=== PATIENT | male | born 1965 | race Caucasian/White ===

== ENCOUNTER 2019-03-20 16:18 | Observation (INO) | payer OTHER ==
[~2019-03-20] VITALS: Ht 177.8 cm; Wt 69.4 kg
--- NOTE | 2019-03-20 16:20 | NUR ---
TO ROOM VIA EMS STRETCHER
--- NOTE | 2019-03-20 17:10 | NUR ---
PT ARRIVED BY EMS WITH THE COMPLAINT THAT HE HAD ALTERED MENTAL STATUS SIDE OF ROAD. PIANO ASSEMBLER DISCRIBED THAT PT WAS ALERT TO PERSON AND PLACE BUT NOT TIME. PT WAS ON HIS WAY HOME. HE WAS SLIGHTLY TACHYCARDIC IN AMBULANCE AND HAD A BG OF 106. NSR UPON TALKING TO PT HE IS ALERT IN PERSON PLACE AND TIME. PT STATES PASSING OUT ON HIS WAY HOME FROM THE STORE. PERRMICHELLE. PT VITAL SIGNS ARE WITHIN NORMAL LIMITS. WILL CONTINUE TO MONITOR.
[2019-03-20 17:43] LABS: HEMATOCRIT 44.6 % (39.0-50.0); HEMOGLOBIN 15.2 g/dl (14.0-18.0); IMMATURE GRANULOCYTES 0.6 % (0.0-5.0); MEAN CORPUSCULAR HGB 31.3 pG CALC (26.0-32.0); MEAN CORPUSCULAR HGB CONC 34.1 g/L CALC (32.0-36.0); NEUT# 1.96 thou/uL (1.82-7.42); RED BLOOD COUNT 4.85 mill/uL (4.70-6.10)
[2019-03-20 17:58] LABS: ALBUMIN 5.2 g/dL (3.2-5.0); ALKALINE PHOSPHATASE 92 u/l (38-126); ANION GAP 25 (6-22 (CALC)); BILIRUBIN, TOTAL 0.8 mg/dL (0.0-1.4); BUN 7 mg/dL (9-20); BUN/CREATININE RATIO 10 (12-20 (CALC)); CARBON DIOXIDE 24 mmol/l (22-30); CHLORIDE 97 mmol/l (95-108); CREATININE 0.7 mg/dL (0.7-1.3); GFR > 60 ML/MIN (>=60 (CALC)); GFR FOR AFR.AMER. > 60 ML/MIN (>=60 (CALC)); POTASSIUM 4.2 mmol/l (3.5-5.1); SGOT/AST 141 u/l (17-59); SODIUM 142 mmol/l (137-146); TOTAL PROTEIN 8.7 g/dL (6.3-8.2)
--- NOTE | 2019-03-20 18:02 | NUR ---
ORDERED FOR ORTHOSTATICS. REQUEST FULFILLED
[2019-03-20 18:10] LABS: MYOGLOBIN 322 ng/mL (0 - 121)
[2019-03-20 18:41] LABS: URINE BILIRUBIN - DIPSTICK NEGATIVE (NEGATIVE); URINE BLOOD DIPSTICK SMALL (NEGATIVE); URINE COLOR YELLOW; URINE GLUCOSE - DIPSTICK NEGATIVE (NEGATIVE); URINE KETONE 40 mg/dL (NEGATIVE); URINE LEUK ESTERASE NEGATIVE (NEGATIVE); URINE NITRITE - DIPSTICK NEGATIVE (Negative); URINE PH 5.5 (4.5-8.0); URINE PROTEIN - DIPSTICK TRACE mg/dL (NEG-TRACE); URINE UROBILINOGEN - DIPSTICK 0.2 E.U./dL (0.2)
[2019-03-20 18:43] LABS: BARBITURATES NEGATIVE (NEGATIVE); COCAINE NEGATIVE (NEGATIVE); METHADONE NEGATIVE (NEGATIVE); OXCYCODONE NEGATIVE (NEGATIVE); TETRAHYDROCANNABIONOL NEGATIVE (NEGATIVE); TRICYLIC ANTIDEPRESSANTS NEGATIVE (NEGATIVE)
[2019-03-20 18:59] LABS: URINE SQUAMOUS EPITHELIAL CELL FEW EPI/hpf (0-FEW)
--- NOTE | 2019-03-20 19:29 | NUR ---
PT NOTIFIED OF FINDINGS OF ALCOHOL LEVEL OF 300. BECAUSE OF THAT LEVEL IT WAS EXPLAINED THAT HE HAS TO STAY IN HOSPITAL TIL LEVELS SUBSIDED. UNLESS HE HAD FAMILY TO PICK HIM UP. PT STATED THAT HE DID NOT SO HE WILL HAVE TO BE OBSERVED. PT VERBALIZED UNDERSTANDING.
--- NOTE | 2019-03-20 20:02 | NUR ---
PT IS LAYING IN BED WATCHING TV. CALL LIGHT WITHIN REACH, DENIED ANY NEEDS
--- NOTE | 2019-03-20 21:27 | NUR ---
PT REQUEST FOR ADDITIONAL PO FLUIDS. BESIDES THAT PT DENIED ANY OTHER NEEDS. HE IS SITTING UP IN STRETCHER WATCHING TV AND CALL LIGHT WITHIN REACH
--- NOTE | 2019-03-20 21:52 | NUR ---
REPORT ROSA JACOB RN
--- NOTE | 2019-03-20 21:55 | NUR ---
ASSUMED CARE. HAT/SHIRT/SHOES TO DESK. PT IS ALERT/ORIENTED. PWD. IVF INFUSING. VSS.
--- NOTE | 2019-03-21 00:15 | NUR ---
PT WATCHING TV. VSS. UP TO BS TO VOID IN URINAL.
--- NOTE | 2019-03-21 00:44 | NUR ---
PT RUBEN. ALERT ORIENTED TO PERSON/PLACE. TIME OF DAY...NOT. EKG DONE. LAB HERE FOR REPEAT BAL. IV FLUIDS UP.
[2019-03-21 01:26] LABS: MAGNESIUM 1.7 mg/dL (1.6-2.3)
--- NOTE | 2019-03-21 01:30 | NUR ---
U/O 400
--- NOTE | 2019-03-21 02:09 | NUR ---
DR TO BEDSIDE TO RE-EVAL.
--- NOTE | 2019-03-21 02:26 | NUR ---
PT CALMER/CONVERSING. VOIDED 400 CC IN URINAL. CIWA ORDERS FAXED TO [facility].
--- NOTE | 2019-03-21 03:23 | NUR ---
REPORT TO JUDY/MED SURG.
--- NOTE | 2019-03-21 03:28 | NUR ---
PT TO FLOOR VIA W/C WITH BELONGINGS IN THE BAG. PT AMBULATORY TO BED. RUBEN. SOLE LAYER AT BEDSIDE.
[2019-03-21 03:30] VITALS: BP 150/92
--- NOTE | 2019-03-21 03:30 | NUR ---
RECEIVED REPORT FROM NURSE JACOB, PATIENT TRANSPORTED VIA WHEELCHAIR TRANSFERRED TO BED, ORINETED TO ROOM AND CALL LIGHT SYSTEM.
--- NOTE | 2019-03-21 04:18 | NUR ---
PATIENT ALERT ORIENTED, WITH AN ONGOING IV OF NORMAL SALINE 150CC/HR INFUSING WELL ON LAC, CALM AT THIS TIME, STILL WITH MILD HAND TREMORS, DENIES PAIN OR DISCOMFORTS, CIWA SCORE 1, LBM 03/20, WILL CONTINUE TO MONITOR, CALL LIGHT AT REACH.
--- NOTE | 2019-03-21 04:57 | NUR ---
RECEIVED A PHONE CALL FROM ED HR 130'S, PATIENT WAS SEEN PACING IN ROOM, HAND TREMORS, DUE ATIVAN GIVEN AT THIS TIME.
[2019-03-21 05:41] VITALS: BP 148/86
--- NOTE | 2019-03-21 08:00 | NUR ---
SHIFT CHANGE REPORT, PT AWAKE ALERT AND ORIENTED SITTING UP IN BED, NO C/O PAIN/DISCOMFORT AT THIS TIME, IVF INFUSING, TELE MONITOR IN PLACE, CALL BURDICK IN REACH.
[2019-03-21 09:01] VITALS: BP 140/89
[2019-03-21] MEDS ORDERED: NORVASC5 M1 PO (11:00)
[2019-03-21] MEDS ORDERED: ADLT ASA LOW81 MG PO (11:01)
[2019-03-21] MEDS ORDERED: CO Q 10100 MG PO (11:02)
[2019-03-21] MEDS ORDERED: LIPITOR20 M1 PO (11:02)
[2019-03-21] MEDS ORDERED: FINASTERIDE5 MG PO (11:03)
[2019-03-21] MEDS ORDERED: OMEPRAZOLE DR40 MG PO (11:03)
[2019-03-21] MEDS ORDERED: LEVOTHYROXIN25 MC1 PO (11:03)
--- NOTE | 2019-03-21 14:30 | NUR ---
RELAY SHOP SUPERVISOR CALLED RAPID RESPONSE REPORTING PT WAS IN V-TACH, ON ASSESSMENT PT FOUND WRAPPED AROUND IV TUBINGS, HAD GOTTEN OOB BY SELF, WENT TO AND RETURNED FROM . HE WAS ALERT AND ORIENTED, COHERENT, DENIED ANY PAIN/DISCOMFORT, VITAL SIGNS MEASURED AND RECORDED. GEOMORPHOLOGIST EVALUATED AND GAVE ORDERS, AFTER A SHORT WHILE PT'S RHYTHM WAS BACK IN ST 104 REPORTED BY RELAY SHOP SUPERVISOR. BED ALARM PLACED, CONTINUOUS MONITORING INITIATED.
[2019-03-21 15:19] LABS: MAGNESIUM 1.6 mg/dL (1.6-2.3)
[2019-03-21 16:00] VITALS: BP 133/88
--- NOTE | 2019-03-21 19:00 | NUR ---
PATIENT SITTING AT SIDE OF THE BED, TRIES TO GO TO BATHROOM SETTING OFF BNED ALARM, UNSTEADY GAIT, ASSISTED TO BATHROOM AND ASSITED BACK IN BED.
[2019-03-21 19:10] VITALS: BP 137/55
--- NOTE | 2019-03-21 21:00 | NUR ---
PATIENT ALERT ORIENTED, WITH ONGOING IV OF NORMAL SALINE @ 80CC/HR INFUSING WELL. REMAINS ON TELE, LBM 03/21, NON COMPLIANT WITH CALL LIGHT,AMBULATES TO BATHRPOOM UNSTEADY GAIT, BED ALARM IN PLACE.
--- NOTE | 2019-03-21 23:38 | NUR ---
PATIENT RESTING IN BED, EYES CLOSED, NO DISCOMFORTS NOTED AT THIS TIME, CALL LIGHT AT REACH.
[2019-03-21 23:49] VITALS: BP 123/82
[2019-03-22 03:41] VITALS: BP 132/89
--- NOTE | 2019-03-22 04:21 | NUR ---
PATIENT APPEARS TO BE SLEEPIN WITH EYES CLOSED, REMAINS ON BED ALARM, CALL LIGHT AT REACH.
[2019-03-22 05:25] LABS: HEMATOCRIT 45.8 % (39.0-50.0); HEMOGLOBIN 15.4 g/dl (14.0-18.0); MEAN CELL VOLUME 93.3 fL CALC (80.0-100.0); MEAN CORPUSCULAR HGB 31.4 pG CALC (26.0-32.0); MEAN CORPUSCULAR HGB CONC 33.6 g/L CALC (32.0-36.0); RED BLOOD COUNT 4.91 mill/uL (4.70-6.10); RED CELL DISTRI WIDTH 12.7 % (11.5-15.5)
[2019-03-22 05:53] LABS: ANION GAP 16 (6-22 (CALC)); BUN 6 mg/dL (9-20); BUN/CREATININE RATIO 11 (12-20 (CALC)); CARBON DIOXIDE 25 mmol/l (22-30); CHLORIDE 98 mmol/l (95-108); CREATININE 0.5 mg/dL (0.7-1.3); GFR > 60 ML/MIN (>=60 (CALC)); GFR FOR AFR.AMER. > 60 ML/MIN (>=60 (CALC)); MAGNESIUM 1.9 mg/dL (1.6-2.3); SODIUM 136 mmol/l (137-146)
[2019-03-22 05:54] LABS: POTASSIUM 3.2 mmol/l (3.5-5.1)
--- NOTE | 2019-03-22 07:00 | NUR ---
SHIFT CHANGE REPORT, PT AWAKE ALERT AND ORIENTED, COHERENT, NO TREMORS OBSERVED AT THIS TIME, PLEASANTLY CONVERSANT, IVF INFUSING, TELE MONITOR IN PLACE, CALL BURDICK IN REACH AND BED ALARM ON.
[2019-03-22 08:15] VITALS: BP 127/85
[2019-03-22 11:40] VITALS: BP 141/90
--- NOTE | 2019-03-22 12:00 | NUR ---
RESTING IN BED, FAMILY MEMBERS VISIKTING, PT MUCH IMPROVED TODAY BUT STILL UNSTEADY ON FEET.
[2019-03-22 15:42] VITALS: BP 127/83
--- NOTE | 2019-03-22 16:00 | NUR ---
RESTING IN BED, MAKES NEEDS KNOWN, ALARM STILL IN PLACE PT CAN BE IMPULSIVE AND GETS OOB WITHOUT CALLING FOR ASSIST, CALL BURDICK IN REACH.
[2019-03-22 18:52] VITALS: BP 142/77
--- NOTE | 2019-03-22 18:55 | NUR ---
REPORT RECEIVED FROM GOLDY PARRISH. PT RESTING IN BED, NO S/S OF DISTRESS AT THIS TIME. SAFETY PRECAUTIONS IN PLACE. WILL CONTINUE TO MONITOR.
--- NOTE | 2019-03-22 21:15 | NUR ---
PT RESTING IN BED, ALERT AND ORIENTED. RESPIRATIONS EVEN AND UNLABORED ON RA, LUNGS SOUND CLEAR/DIMINISHED. PEDAL PULSES ARE STRONG. PT DENIES ANY PAIN OR DISCOMFORT AT THIS TIME. PT PROVIDED WITH A COKE AND A CUP OF WATER PER REQUEST. SAFETY PRECAUTIONS IN PLACE. WILL CONTINUE TO MONITOR.
[2019-03-23 00:07] VITALS: BP 111/76
--- NOTE | 2019-03-23 02:55 | NUR ---
PT RESTING IN BED WITH EYES CLOSED APPEARS TO BE SLEEPING. NO S/S OF DISTRESS AT THIS TIME, SAFETY PRECAUTIONS IN PLACE. WILL CONTINUE TO MONITOR.
--- NOTE | 2019-03-23 02:57 | NUR ---
PT ASSISTED TO THE RTESTROOM AND BACK TO BED GATE UNSTEADY, SAFETY PRECAUTIONS IN PLACE. WILL CONITNUE TO MONITOR
[2019-03-23 04:10] VITALS: BP 105/79
--- NOTE | 2019-03-23 04:18 | NUR ---
PT RESTING IN BED RESPIRATIONS EVEN AND UNLABORED ON RA. NO S/S OF DISTRESS AT THIS TIME. WILL CONTINUE TO MONITOR.
[2019-03-23 05:10] LABS: HEMATOCRIT 40.7 % (39.0-50.0); HEMOGLOBIN 13.8 g/dl (14.0-18.0); MEAN CELL VOLUME 93.3 fL CALC (80.0-100.0); MEAN CORPUSCULAR HGB 31.7 pG CALC (26.0-32.0); MEAN CORPUSCULAR HGB CONC 33.9 g/L CALC (32.0-36.0); RED BLOOD COUNT 4.36 mill/uL (4.70-6.10); RED CELL DISTRI WIDTH 12.6 % (11.5-15.5)
[2019-03-23 05:18] LABS: ANION GAP 12 (6-22 (CALC)); BUN 7 mg/dL (9-20); BUN/CREATININE RATIO 12 (12-20 (CALC)); CARBON DIOXIDE 23 mmol/l (22-30); CHLORIDE 102 mmol/l (95-108); CREATININE 0.6 mg/dL (0.7-1.3); GFR > 60 ML/MIN (>=60 (CALC)); GFR FOR AFR.AMER. > 60 ML/MIN (>=60 (CALC)); MAGNESIUM 1.8 mg/dL (1.6-2.3); POTASSIUM 3.3 mmol/l (3.5-5.1); SODIUM 134 mmol/l (137-146)
[2019-03-23 08:00] VITALS: BP 120/81
--- NOTE | 2019-03-23 08:00 | NUR ---
REPORT RECEIVED FROM SN TAL. PT IN BED REDD TO MAKE NEEDS KNOWN. PT EDUCATED ON FALL PRECAUTIONS AND EDUCATED ON ASKING FOR HELP WITH TRANSFER. CALL LIGHT WITHIN EASY REACH. BED IN LOWEST POSITION. NO SIGN OF ANXIETY, TREMORS. PT DENIES ANXIETY
[2019-03-23 11:20] VITALS: BP 126/86
[2019-03-23] MEDS ORDERED: FOLIC ACID1 M1 PO (11:37)
[2019-03-23] MEDS ORDERED: VITAMIN B-1100 M1 PO (11:37)
[2019-03-23] MEDS ORDERED: LIBRIUM25 MG PO (11:37)
--- NOTE | 2019-03-23 12:20 | NUR ---
PT DISCHARGED HOME. IV REMOVED WITH NO COMPLICATIONS. DISCHARGE INSTRUCTIONS AND SCRIPTS GIVEN TO PT. PT ABLE TO VERBALIZE UNDERSTANDING. PT TRANSPORTED VIA TO [facility] ACCOMPAN[facility] BY VOLUNTEER AND PATIENTS PARENTS
== END 2019-03-23 13:00 | disposition home health service (06) ==
LOC: ED 16:18 → ED-I 17:28 → ED 03-21 02:38 → MS2 03-21 02:39 → UNDODEPER 03-21 03:28 → MS2 03-23 13:00
PROVIDERS: Emergency Medicine; Nurse Practitioner Family; ADMIT Internal Medicine; ATTEND Internal Medicine
DX: F10.239 Alcohol dependence with withdrawal, unspecified (principal); F10.229 Alcohol dependence with intoxication, unspecified; Y90.8 Blood alcohol level of 240 mg/100 ml or more; E87.6 Hypokalemia; I10 Essential (primary) hypertension; E03.9 Hypothyroidism, unspecified; E78.5 Hyperlipidemia, unspecified; T46.6X6A Underdosing of antihyperlipidemic and antiarteriosclerotic drugs, initial encounter; T38.1X6A Underdosing of thyroid hormones and substitutes, initial encounter; T46.5X6A Underdosing of other antihypertensive drugs, initial encounter; S00.91XA Abrasion of unspecified part of head, initial encounter; W18.30XA Fall on same level, unspecified, initial encounter; Z91.128 Patient's intentional underdosing of medication regimen for other reason; Z86.73 Personal history of transient ischemic attack (TIA), and cerebral infarction without residual deficits; Z87.891 Personal history of nicotine dependence
CPT/HCPCS: G0378; J2060

== ENCOUNTER 2019-09-01 20:58 | Observation (INO) | payer OTHER ==
[~2019-09-01] VITALS: Ht 182.9 cm; Wt 75.6 kg
[~2019-09-01 20:58] MED LIST: ADLT ASA LOW81 MG PO; CO Q 10100 MG PO; FINASTERIDE5 MG PO; FOLIC ACID1 M1 PO; LEVOTHYROXIN25 MC1 PO; LIBRIUM25 MG PO; LIPITOR20 M1 PO; NORVASC5 M1 PO; OMEPRAZOLE DR40 MG PO; VITAMIN B-1100 M1 PO
--- NOTE | 2019-09-01 21:15 | NUR ---
BY WC TO ROOM
[2019-09-01 21:57] LABS: IMMATURE GRANULOCYTES 0.2 % (0.0-5.0); MEAN CORPUSCULAR HGB 29.1 pG CALC (26.0-32.0); MEAN CORPUSCULAR HGB CONC 33.7 g/dL CAL (32.0-36.0); NEUT# 2.76 thou/uL (1.82-7.42); RED BLOOD COUNT 5.47 mill/uL (4.70-6.10); RED CELL DISTRI WIDTH 11.9 % (11.5-15.5)
--- NOTE | 2019-09-01 22:00 | NUR ---
UNABLE TO RECONCILE MEDS. PT STATES THAT HIS MOTHER TAKES CARE OF THAT. MOTHER CURRENTLY UNAVAILABLE.
[2019-09-01 22:01] LABS: HEMATOCRIT 47.2 % (39.0-50.0); HEMOGLOBIN 15.9 g/dl (14.0-18.0); MEAN CELL VOLUME 86.3 fL CALC (80.0-100.0)
[2019-09-01 22:12] LABS: INTERNATIONAL NORMALIZED RATIO 0.9 RATIO (0.7-1.3); PROTHROMBIN TIME 9.3 SECONDS (9.0-12.5)
[2019-09-01 22:13] LABS: ALBUMIN 5.3 g/dL (3.2-5.0); ALKALINE PHOSPHATASE 79 u/l (38-126); AMYLASE 68 u/l (30-110); BUN 10 mg/dL (9-20); BUN/CREATININE RATIO 13 (12-20 (CALC)); CHLORIDE 96 mmol/l (95-108); CREATININE 0.8 mg/dL (0.7-1.3); GFR > 60 ML/MIN (>=60 (CALC)); GFR FOR AFR.AMER. > 60 ML/MIN (>=60 (CALC)); POTASSIUM 2.8 mmol/l (3.5-5.1); SGOT/AST 54 u/l (17-59); SODIUM 137 mmol/l (137-146); TOTAL PROTEIN 8.8 g/dL (6.3-8.2)
[2019-09-01 22:14] LABS: ANION GAP 12 (6-22 (CALC)); BILIRUBIN, TOTAL 1.8 mg/dL (0.0-1.4); CARBON DIOXIDE 32 mmol/l (22-30)
[2019-09-01 22:25] LABS: MYOGLOBIN 103 ng/mL (0 - 121)
[2019-09-02] VITALS (7 sets, daily range): BP systolic 106–135; BP diastolic 69–79
--- NOTE | 2019-09-02 | NUR ---
RESTING QUIETLY AWAITING DISPO. NO CP.
--- NOTE | 2019-09-02 01:00 | NUR ---
NO CHANGE IN EXAM.
[2019-09-02 01:08] LABS: URINE BILIRUBIN - DIPSTICK NEGATIVE (NEGATIVE); URINE BLOOD DIPSTICK NEGATIVE (NEGATIVE); URINE COLOR YELLOW; URINE GLUCOSE - DIPSTICK NEGATIVE (NEGATIVE); URINE KETONE 15 mg/dL (NEGATIVE); URINE LEUK ESTERASE NEGATIVE (NEGATIVE); URINE NITRITE - DIPSTICK NEGATIVE (Negative); URINE PROTEIN - DIPSTICK NEGATIVE (NEG-TRACE); URINE SPECIFIC GRAVITY 1.015; URINE UROBILINOGEN - DIPSTICK 0.2 E.U./dL (0.2)
--- NOTE | 2019-09-02 02:00 | NUR ---
ADMITTED. WILL BE BOARDING IN ER.
--- NOTE | 2019-09-02 04:19 | NUR ---
PT NOW IN HOSPITAL BED SLEEPING.
[2019-09-02 06:11] LABS: ALBUMIN 4.7 g/dL (3.2-5.0); ALKALINE PHOSPHATASE 67 u/l (38-126); BILIRUBIN, TOTAL 1.9 mg/dL (0.0-1.4); BUN 9 mg/dL (9-20); BUN/CREATININE RATIO 11 (12-20 (CALC)); CARBON DIOXIDE 30 mmol/l (22-30); CHLORIDE 100 mmol/l (95-108); CREATININE 0.8 mg/dL (0.7-1.3); GFR > 60 ML/MIN (>=60 (CALC)); GFR FOR AFR.AMER. > 60 ML/MIN (>=60 (CALC)); SGOT/AST 42 u/l (17-59); SODIUM 138 mmol/l (137-146); TOTAL PROTEIN 7.3 g/dL (6.3-8.2)
[2019-09-02 06:12] LABS: ANION GAP 12 (6-22 (CALC)); POTASSIUM 3.6 mmol/l (3.5-5.1)
--- NOTE | 2019-09-02 06:45 | NUR ---
PT RESTING QUIETLY.
--- NOTE | 2019-09-02 07:56 | NUR ---
patient is resting comfortably, currently denies any pain, shortness of breath or any difficutly in breathing. patient continues to be on radiation monitor, and all vital signs wnl. iv site patent and flushes without any complications.
[2019-09-02] MEDS ORDERED: LIBRIUM25 MG PO (12:12)
--- NOTE | 2019-09-02 14:45 | NUR ---
Admission Note Report Given to: SBAR PRINTED TO FLOOR Transported by: X Wheelchair Stretcher Transported with: X Nurse X Transporter X Patent IV O2 X Group Director Location: ICU X MS2
--- NOTE | 2019-09-02 14:49 | NUR ---
REPORT WAS RECEIVED FROM SEEMA.PT CAME FROM ER VIA WHEELCHAIR BY NURSE STEPHENSON. PT AMBULATED TO SCALE THEN TO BED. CALL LIGHT IN REACH.
--- NOTE | 2019-09-02 15:20 | NUR ---
ASSESSMENT DONE PT IS A&O X3. PT DENIES PAIN AT THIS TIME. TELE IN PLACE. IV SITE APPEARS HEALTHY. PT STATED HE HAD BM YESTERDAY. REPSP EVEN AND UNLABORED. PT DENIES NEEDS AT THIS TIME. CALL LIGHT IN REACH.
--- NOTE | 2019-09-02 19:35 | NUR ---
ASSESSMENT COMPLETED. NO DISTRESS NOTED; DENIES NEEDS/PAIN. NITRO PAST REMOVED FROM RIGHT SIDE OF CHEST. UPDATED ON POC. PER PT. HE BELIEVES HIS MOTHER SHOULD BE HERE AROUND 0930 TOMORROW FOR NET DEVELOPER CONTRACT. TELEMETRY IN PLACE. ENCOURAGED TO CALL FOR ANY NEEDS. CALL LIGHT IS IN REACH.
--- NOTE | 2019-09-02 22:25 | NUR ---
220- PT. CALLS THE DESK AND REPORTING CHEST PRESSURE/PAIN 06/01 AND REPORTS ITS BEEN THERE FOR APPROXIMATELY 30MINUTES; NO DISTRESS NOTED TO PT. PT. IS CALM. VSS. CALLED RT AND NOTIFIED THEM OF NEED FOR EKG. SPOKE WITH PAIL BAILER AND NO CHANGE IN READING/RHYTYM. 2214- RT OBTAINED EKG AND PT. NOW REPORTS CP IS GONE AND IT COMES IN WAVES. 2224- NOTIFIED DR. FINNEY OF THE ABOVE NOTES.NEW ORDERS RECEIVED AND TO BE CARRIED OUT.
--- NOTE | 2019-09-02 22:51 | NUR ---
PT. C/O CP AND NITRO GIVEN X1. WILL REASSESS. VSS.
--- NOTE | 2019-09-02 23:22 | NUR ---
PT. REPORTS PAIN IS DOWN TO 1/10.DENIES NEEDS .CALL LIGHT IS IN REACH.
--- NOTE | 2019-09-03 02:36 | NUR ---
RESTING IN BED WITH NO DISTRESS NOTED; DENIES NEEDS/PAIN. ENCOURAGED TO CALL FOR ANY NEEDS.
[2019-09-03 04:18] VITALS: BP 120/73
--- NOTE | 2019-09-03 05:04 | NUR ---
PT. SITTING UP IN BED WITH NO DISTRESS NOTED; SYNTHROID GIVEN PER EMAR. DENIES NEEDS. VOICES NO NEEDS.
[2019-09-03 07:09] VITALS: BP 118/80
--- NOTE | 2019-09-03 07:09 | NUR ---
PT RESTING IN BED, NO SIGNS OF DISTRESS NOTED, RESP EVEN AND UNLABORED. PT STATES HIS RIDE WILL BE ARRIVING AT 9:30 DENIES ANY PAIN AT THIS TIME, ASSESSMENT COMPLETED. DISCUSSED POC, CALL LIGHT IN REACH,CONTINUE TO MONITOR.
[2019-09-03 08:50] VITALS: BP 118/80
--- NOTE | 2019-09-03 09:40 | NUR ---
Discharge instructions given. Patient verbalizes understanding of same. Discharged in stable condition via Ambulatory to Home with parents. All belongings sent with pt.
== END 2019-09-03 09:43 | disposition home or self-care (01) ==
LOC: ED 20:58 → ED-I 09-02 00:38 → ED 09-02 01:48 → ED-I 09-02 01:49 → MS2 09-02 14:21
PROVIDERS: Emergency Medicine; ADMIT Internal Medicine; ATTEND Internal Medicine
DX: R07.9 Chest pain, unspecified (principal); R00.2 Palpitations; F10.239 Alcohol dependence with withdrawal, unspecified; I10 Essential (primary) hypertension; I69.951 Hemiplegia and hemiparesis following unspecified cerebrovascular disease affecting right dominant side; Z87.891 Personal history of nicotine dependence; Z20.828 Contact with and (suspected) exposure to other viral communicable diseases
CPT/HCPCS: G0378